=== PATIENT | male | born 1980 | race Caucasian/White ===

== ENCOUNTER 2021-09-18 17:49 | Inpatient (IN) | payer SELFPAY ==
[2021-09-18 18:02] VITALS: BMI 58.5
[2021-09-18] MEDS ORDERED: HYDROmorphone HCL 2 MG TABLET PO ONE (18:26)
[2021-09-18] MEDS ORDERED: SODIUM CHLORIDE 0.9% 500 ML INFUS.BAG IV ONE ×2 (18:36→21:03)
[2021-09-18] MEDS ORDERED: HYDROmorphone HCl 2 MG/ML VIAL ONE ×3 (19:03→21:37)
[2021-09-18] MEDS ORDERED: HYDROmorphone HCL CARPU-JECT 2 MG/1 ML DISP.SYRIN IVPB ONE (19:17)
[2021-09-18] MEDS ORDERED: HYDROmorphone HCL CARPU-JECT 2 MG/1 ML DISP.SYRIN IVPUSH ONE ×3 (19:23→21:32)
[2021-09-18 19:38] LABS: VENOUS BASE EXCESS -1.8 mmol/L (-2-2); VENOUS O2 SATURATION 94.8 % (70-80); VENOUS PCO2 36.1 mmHg (38-52); VENOUS PH 7.409 (7.310-7.410)
[2021-09-18] MEDS ORDERED: PIPERACILLIN/TAZOB 4.5 GM 4.5 GM in DEXTROSE 5%-WATER 100 ML IVPB ONE (19:53)
[2021-09-18 19:54] LABS: BASO % 1.1 % (0-2.0); EOS % 2.6 % (0-4.5); HEMOGLOBIN 11.3 GM/dL (11.7-16.9); LYMPH % 17.2 % (8-40); MCH 29.1 pg (25.7-33.7); MCHC 34.2 g/dl (32.0-35.9); MEAN PLT VOLUME 7.7 fl (7.5-11.1); MONO % 12.9 % (3.8-10.2); NEUT % 66.2 % (42.8-82.8); PLATELET COUNT 263 10^3/uL (134-434); RBC 3.88 M/mm3 (4.00-5.60); WHITE BLOOD COUNT 4.9 K/mm3 (4.0-10.0)
[2021-09-18 19:58] LABS: INR 1.12 (0.83-1.09); PROTHROMBIN TIME (PATIENT) 12.9 SEC (9.7-13.0)
[2021-09-18] MEDS ORDERED: PIPERACILLIN/TAZOB 4.5 GM 4.5 GM/100 ML BAG IVPB ONE (20:02)
[2021-09-18 20:04] LABS: CALCIUM 8.5 mg/dL (8.5-10.1)
[2021-09-18 20:05] LABS: ALBUMIN 3.6 g/dl (3.4-5.0)
[2021-09-18 20:08] LABS: CREATININE 0.9 mg/dL (0.55-1.3)
[2021-09-18 20:09] LABS: BILIRUBIN,TOTAL 0.3 mg/dL (0.2-1); TOT PROT 6.8 g/dl (6.4-8.2)
[2021-09-18 20:45] LABS: URINE APPEARANCE BLOODY; URINE BILIRUBIN NEGATIVE (NEGATIVE); URINE COLOR RED; URINE GLUCOSE (UA) NEGATIVE (NEGATIVE)
[2021-09-18 20:46] LABS: URINE PROTEIN 3+ (NEGATIVE); URINE UROBILINOGEN 0.2 mg/dL (0.2-1.0)
[2021-09-18 21:00] LABS: URINE BACTERIA FEW /uL (0-1359); URINE RBC >200 /uL (0-23.9)
[2021-09-18] MEDS ORDERED: KETAMINE HCL 200 MG/20 ML VIAL IVPB ONE (21:02)
[2021-09-18 21:14] LABS: EPI CELLS 0-3 /uL (0-25.1); HYALINE CASTS 0-2 /uL (0-3.1)
[2021-09-18] MEDS ORDERED: KETAMINE HCL 200 MG/20 ML VIAL ONE (21:14)
[2021-09-18 21:16] LABS: URINE WBC 0-5 /uL (0-25.8)
[2021-09-18] MEDS ORDERED: ACETAMINOPHEN 1000 MG/100 ML BAG IVPB ONE (22:34)
[2021-09-18] MEDS ORDERED: ACETAMINOPHEN INJECTION 100 ML IVPB ONE (22:52)
[2021-09-19] MEDS ORDERED: HYDROmorphone HCL CARPU-JECT 2 MG/1 ML DISP.SYRIN IVPUSH PRN (00:17)
[2021-09-19] MEDS ORDERED: ACETAMINOPHEN 1000 MG/100 ML BAG IVPB PRN (00:20)
[2021-09-19] MEDS ORDERED: HYDROmorphone HCl 2 MG/ML VIAL IVPUSH PRN (00:21)
[2021-09-19] MEDS ORDERED: HYDROmorphone HCl 2 MG/ML VIAL ONE (00:30)
[2021-09-19] MEDS ORDERED: PIPERACILLIN/TAZOBACTAM 3.375 GM VIAL IVPB ONE (01:25)
[2021-09-19] MEDS ORDERED: HYDROmorphone HCl 2 MG/ML VIAL IVPB ONE ×2 (02:01→09:15)
[2021-09-19] MEDS ORDERED: HYDROmorphone HCl 2 MG/ML VIAL IVPB PRN ×2 (02:01→07:43)
[2021-09-19] MEDS: PIPERACILLIN/TAZOB 3.375 GM 3.375 GM in DEXTROSE 5%-WATER - 50 ML IVPB SCH ×3 (02:18→17:47)
[2021-09-19] MEDS ORDERED: SODIUM CHLORIDE 1,000 ML IV SCH ×2 (08:00)
[2021-09-19] MEDS: TAMSULOSIN HCL 0.4 MG CAP PO SCH ×2 (08:01→22:10)
[2021-09-19] MEDS ORDERED: TAMSULOSIN HCL 0.4 MG CAP PO SCH (08:30)
[2021-09-19] MEDS: ACETAMINOPHEN 1000 MG/100 ML BAG IVPB SCH ×3 (09:38→22:23)
[2021-09-19] MEDS: HYDROmorphone HCl 2 MG/ML VIAL IVPB PRN ×5 (11:17→22:08)
[2021-09-19] MEDS: SODIUM CHLORIDE 1,000 ML IV SCH (12:45)
[2021-09-19] MEDS: CEFTRIAXONE 1 GM in DEXTROSE 5%-WATER - 50 ML IVPB SCH (18:12)
[2021-09-19] MEDS: DOCUSATE SODIUM 100 MG CAPSULE (FP) PO SCH (22:08)
[2021-09-20] MEDS: HYDROmorphone HCl 2 MG/ML VIAL IVPB PRN ×11 (00:08→21:56)
[2021-09-20] MEDS: ACETAMINOPHEN 1000 MG/100 ML BAG IVPB SCH ×4 (02:47→21:11)
[2021-09-20] MEDS: TAMSULOSIN HCL 0.4 MG CAP PO SCH ×2 (08:15→21:09)
[2021-09-20] MEDS ORDERED: oxyCODONE HCL 5 MG TABLET PO PRN ×3 (08:34→10:56)
[2021-09-20] MEDS ORDERED: HYDROmorphone HCl 2 MG/ML VIAL IVPB PRN ×2 (08:37→16:18)
[2021-09-20] MEDS: CEFTRIAXONE 1 GM in DEXTROSE 5%-WATER - 50 ML IVPB SCH (09:44)
[2021-09-20] MEDS: oxyCODONE HCL 5 MG TABLET PO PRN ×2 (12:35→16:27)
[2021-09-20] MEDS ORDERED: HYDROmorphone HCl 2 MG/ML VIAL IVPB ONE (12:35)
[2021-09-20] MEDS: SODIUM CHLORIDE 1,000 ML IV SCH ×3 (12:59→22:33)
[2021-09-20 16:56] LABS: EPI CELLS >36 /uL (0-25.1); HYALINE CASTS 209 /uL (0-3.1); PH,URINE 5.5 (5.0-8.0); URINE APPEARANCE CLOUDY; URINE BACTERIA 345 /uL (0-1359); URINE BILIRUBIN NEGATIVE (NEGATIVE); URINE COLOR YELLOW; URINE GLUCOSE (UA) NEGATIVE (NEGATIVE); URINE KETONE NEGATIVE (NEGATIVE); URINE LEUK ESTERASE 3+ (NEGATIVE); URINE NITRITE NEGATIVE (NEGATIVE); URINE PROTEIN TRACE (NEGATIVE); URINE RBC 74 /uL (0-23.9); URINE UROBILINOGEN 0.2 mg/dL (0.2-1.0); URINE WBC 259 /uL (0-25.8)
[2021-09-20] MEDS: DOCUSATE SODIUM 100 MG CAPSULE (FP) PO SCH (21:09)
[2021-09-21] MEDS: HYDROmorphone HCl 2 MG/ML VIAL IVPB PRN ×7 (00:06→12:32)
[2021-09-21] MEDS: ACETAMINOPHEN 1000 MG/100 ML BAG IVPB SCH (06:49)
[2021-09-21] MEDS ORDERED: INSULIN (LEVEMIR) 100 UNITS/ML UNITS SQ ONE (07:03)
[2021-09-21] MEDS ORDERED: INSULIN (NOVOLOG) ASPART 100 UNITS/ML 10ML VIAL ONE (07:04)
[2021-09-21] MEDS: SODIUM CHLORIDE 1,000 ML IV SCH (07:32)
[2021-09-21] MEDS: TAMSULOSIN HCL 0.4 MG CAP PO SCH (08:29)
[2021-09-21] MEDS: CEFTRIAXONE 1 GM in DEXTROSE 5%-WATER - 50 ML IVPB SCH (08:59)
[2021-09-21] MEDS ORDERED: PROPOFOL 40 ML ONE (13:11)
[2021-09-21] MEDS ORDERED: MIDAZOLAM HCL 2 MG/2 ML SINGLE DOSE VIAL ONE (13:11)
[2021-09-21] MEDS ORDERED: SUCCINYLCHOLINE CHLORIDE 200 MG/10 ML SYRINGE ONE (13:11)
[2021-09-21] MEDS ORDERED: ROCURONIUM BROMIDE 50 MG/5 ML SYRINGE ONE (13:14)
[2021-09-21] MEDS ORDERED: HYDROmorphone HCl 2 MG/ML VIAL IVPUSH ONE ×2 (13:51→14:40)
[2021-09-21] MEDS ORDERED: NEOSTIGMINE METHYLSULFATE 0.5 MG/1 ML - 10 ML MDV ONE (13:58)
[2021-09-21] MEDS ORDERED: GLYCOPYRROLATE 0.2 MG/1 ML VIAL ONE ×2 (14:06→14:07)
[2021-09-21] MEDS ORDERED: ACETAMINOPHEN 1000 MG/100 ML BAG IVPB PRN (14:32)
[2021-09-21] MEDS ORDERED: HYDROmorphone HCl 2 MG/ML VIAL ONE ×2 (14:34→15:29)
[2021-09-21] MEDS ORDERED: HYDROmorphone HCL CARPU-JECT 2 MG/1 ML DISP.SYRIN IVPUSH ONE ×2 (14:47→18:23)
[2021-09-21] MEDS ORDERED: ACETAMINOPHEN INJECTION 100 ML IVPB ONE (15:11)
[2021-09-21] MEDS: HYDROmorphone HCl 2 MG/ML VIAL IM PRN ×2 (16:03→20:03)
[2021-09-21] MEDS: CEPHALEXIN MONOHYDRATE 500 MG CAPSULE (UD) PO SCH (21:06)
[2021-09-22] MEDS: HYDROmorphone HCl 2 MG/ML VIAL IM PRN ×3 (00:06→08:04)
[2021-09-22 07:26] VITALS: BP 130/71; PULSE 52; RESP 20; TEMP 97.6
[2021-09-22] MEDS: CEPHALEXIN MONOHYDRATE 500 MG CAPSULE (UD) PO SCH (10:15)
== END 2021-09-22 12:08 | disposition home or self-care (01) | DRG 443 ==
LOC: JER 17:49 → JERBED 21:46 → J6S 09-19 01:02
PROVIDERS: ADMIT Internal Medicine; ATTEND Nurse Practitioner Family
PROC: 0T768ZZ Dilation of Right Ureter, Via Natural or Artificial Opening Endoscopic (ICD-10-PCS; principal; 2021-09-21 12:30)
PROC: 0TP98DZ Removal of Intraluminal Device from Ureter, Via Natural or Artificial Opening Endoscopic (ICD-10-PCS; 2021-09-21 12:30)
PROC: BT1DZZZ Fluoroscopy of Right Kidney, Ureter and Bladder (ICD-10-PCS; 2021-09-21 12:30)
DX: N10 Acute pyelonephritis (principal); N20.2 Calculus of kidney with calculus of ureter; R31.0 Gross hematuria; L50.9 Urticaria, unspecified; R52 Pain, unspecified; R46.89 Other symptoms and signs involving appearance and behavior; E66.01 Morbid (severe) obesity due to excess calories; Z68.43 Body mass index [BMI] 50.0-59.9, adult
CPT/HCPCS: 36415; 71045-TC-FY; 74176-TC; 76000-TC-FY; 80053; 81003; 82550; 82553; 82803; 83605; 84484; 85025; 85610; 85730; 87040; 87077; 87086; 93005; 93010; 94760; 99285-25; C9803-CS; U0003; U0005